=== PATIENT | female | born 1940 | race African-American/Black ===

== ENCOUNTER 2019-08-26 12:33 | Emergency (ER) | payer OTHER, MEDICAID ==
[~2019-08-26] VITALS: Ht 157.5 cm; Wt 45.4 kg
[2019-08-26 12:33] VITALS: BP_SYST 137
--- NOTE | 2019-08-26 12:33 | NUR ---
BROUGHT IN BY [facility] FROM [facility], PLACED IN BED #2 AND TRIAGED. REPORT GIVEN TO JOSEPH
--- NOTE | 2019-08-26 12:35 | NUR ---
ER Dr. Tristan at bedside examining patient.
[2019-08-26] MEDS ORDERED: NACL 0.9% 1,000 ML IV ONE (12:44)
--- NOTE | 2019-08-26 12:55 | NUR ---
Patient is awake, alert, and confused. Patient was sent by [facility] for fever and cough last night. No cough noted, no fever noted.
--- NOTE | 2019-08-26 13:03 | NUR ---
X-ray at bedside.
[2019-08-26 13:22] LABS: BILIRUBIN,URINE NEGATIVE (NEGATIVE); CLARITY/URINE CLEAR (CLEAR); COLOR,URINE YELLOW (YELLOW); GLUCOSE,URINE NEGATIVE (NEGATIVE); KETONES,URINE NEGATIVE (NEGATIVE); LEUKOCYTE ESTERASE ,URINE NEGATIVE (NEGATIVE); NITRITE, URINE POSITIVE (NEGATIVE); PROTEIN URINE 2+ (NEGATIVE); UROBILINOGEN,URINE 0.2 (0.2-1.0)
[2019-08-26 13:23] LABS: BLOOD, URINE TRACE (NEGATIVE)
[2019-08-26 13:33] LABS: BACTERIA,URINE MANY /HPF (None Seen); WBC,URINE 0-3 /HPF (0-3)
[2019-08-26 13:51] LABS: BASOPHILS % (AUTO) 0.3 % (0.0-2.0); EOSINOPHILS % (AUTO) 0.3 % (0.0-4.0); HEMATOCRIT 38.6 % (36-48); HEMOGLOBIN 12.4 g/dL (12.0-16.0); LYMPHOCYTES # (AUTO) 2.3 K/uL (1.0-5.5); LYMPHOCYTES % (AUTO) 27.2 % (20.5-51.5); MEAN CORPUSCULAR HEMOGLOBIN 27 pg (27-31); MEAN CORPUSCULAR HGB CONC 32 % (32-36); MEAN CORPUSCULAR VOLUME 84 fL (79.0-98.0); MONOCYTES # (AUTO) 0.5 K/uL (0.0-1.0); MONOCYTES % (AUTO) 6.5 % (1.7-9.3); NEUTROPHILS # (AUTO) 5.6 K/uL (1.8-7.7); NEUTROPHILS % (AUTO) 65.7 % (40.0-70.0); PLATELET COUNT (AUTO) 262 K/uL (130-430); RED BLOOD CELL COUNT(AUTO) 4.59 MIL/uL (4.2-6.2); RED CELL DISTRIBUTION WIDTH 16.6 % (9.0-15.0); WHITE BLOOD COUNT (AUTO) 8.5 K/uL (4.8-10.8)
[2019-08-26 13:57] LABS: ANION GAP 6 (5-15); CALCIUM 8.7 mg/dL (8.4-11.0); CHLORIDE 110 mmol/L (98-107); GLUCOSE 122 mg/dL (70-99); POTASSIUM 4.4 mmol/L (3.5-5.1); SODIUM SERUM 144 mmol/L (136-145); UREA NITROGEN, BLOOD 16 mg/dL (8-21)
[2019-08-26 14:12] LABS: ALANINE AMINOTRANSFERASE 13 U/L (12-78); ALBUMIN 2.5 g/dL (3.4-4.8); AMYLASE 36 U/L (0-100); ASPARTATE AMINOTRANSFERASE 31 U/L (10-37); LIPASE 173 U/L (73-393); THYROID STIMULATING HORMONE 2.38 uIu/mL (0.36-3.74); TOTAL BILIRUBIN 0.3 mg/dL (0.0-1.0)
--- NOTE | 2019-08-26 15:02 | NUR ---
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
--- NOTE | 2019-08-26 15:06 | NUR ---
Patient given written and verbal discharge instructions and verbalizes understanding. Attempted to call voice Sergomail left. ER MD discussed with patient the results and treatment provided. Patient in stable condition. ID arm band removed. IV catheter removed intact and dressing applied, no active bleeding. Rx of z-pack and robitussin given. Patient educated on pain management and to follow up with PMD. Pain Scale 0/10. Opportunity for questions provided and answered. Medication side effect fact sheet provided.
[2019-08-26 15:08] VITALS: BP_SYST 134
== END 2019-08-26 15:08 ==
LOC: SED 12:33
DX: J20.9 Acute bronchitis, unspecified (principal); I10 Essential (primary) hypertension; J44.9 Chronic obstructive pulmonary disease, unspecified; Z88.5 Allergy status to narcotic agent; Z88.6 Allergy status to analgesic agent; Z88.8 Allergy status to other drugs, medicaments and biological substances
CPT/HCPCS: 36415; 71045; 80053; 81000; 82150; 82550; 83605; 83690; 84443; 84484; 85025; 87040; 87086; 93005; 99285; J7030